=== PATIENT | male | born 1980 | race African-American/Black ===

== ENCOUNTER 2021-02-11 18:16 | Inpatient (IN) | payer MEDICAID ==
[~2021-02-11] VITALS: Ht 177.8 cm; Wt 68.0 kg
[2021-02-11 18:17] VITALS: BP 112/52
[2021-02-11 18:36] LABS: ABSOLUTE NEUTROPHILS 3.5 thou/uL (1.4-8.2); BASOPHILS 0.3 % (0.0-2.0); EOSINOPHILS 0.5 % (0.0-3.0); HEMATOCRIT 35.1 % (42.0-52.0); HEMOGLOBIN 11.8 gm/dL (14.0-18.0); MCH 28.2 pg (26.0-34.0); MCHC 33.6 g/dL (28.0-37.0); MCV 84.1 fL (80.0-100.0); MONOCYTES 8.3 % (1.0-8.0); PLATELET COUNT 194 thou/uL (150-400); POLYS 74.9 % (36.0-66.0); RBC 4.18 mil/uL (4.50-6.00); RDW 14.5 % (10.5-14.5); WBC 4.7 thou/uL (4.0-11.0)
[2021-02-11 18:42] LABS: CALCIUM 8.5 mg/dL (8.5-10.1); CREATININE 1.3 mg/dL (0.7-1.3); POTASSIUM 3.4 mmol/L (3.5-5.1)
[2021-02-11 18:52] LABS: ALBUMIN 3.1 g/dL (3.4-5.0); TOTAL BILIRUBIN 0.2 mg/dL (0.2-1.0); TOTAL PROTEIN 6.4 g/dL (6.4-8.2); TROPONIN-I 0.12 ng/mL (<0.06)
[2021-02-11] MEDS ORDERED: TRESIBA100 UNIT/1 SUBQ (20:40)
[2021-02-11] MEDS ORDERED: HUMALOG100 UNIT/1 SUBQ (20:41)
[2021-02-11] MEDS ORDERED: LIPITOR10 MG PO (20:41)
[2021-02-11 22:20] LABS: CALCIUM 8.4 mg/dL (8.5-10.1); CREATININE 1.3 mg/dL (0.7-1.3); POTASSIUM 3.3 mmol/L (3.5-5.1)
[2021-02-11] MEDS ORDERED: ZONEGRAN100 MG PO (22:55)
[2021-02-12] VITALS (12 sets, daily range): BP systolic 94–135; BP diastolic 56–83
--- NOTE | 2021-02-12 07:22 | EKG ---
[address] [address] ELECTROCARDIOGRAM REPORT Name: GERONIMODORONSLAOME Room #: 170-4 ADM IN M.R.#: [id number] Admission: 02/11/21 Attend Phys: Arthur Mendoza MD Discharge: Date of : 84 Report #: [id number] [facility] ED Test Date: 2021-02-11 Test Time: 19:35:49 Pat Name: LEXX MELTON Department: Room: 170 Gender: M Property Valuer: loretta : 1980 Requested By: Marilu Mars Order Number: [id number] MD: Ryan Austin Measurements Intervals [place] Rate: 87 P: 79 PA: 145 QRS: 87 QRSD: 92 T: 48 QT: 347 QTc: 418 Interpretive Statements Sinus rhythm J Point elev V1-3, probable normal early repol pattern No previous ECG available for comparison Electronically Signed On 02-12-2021 7:22:12 CDT by Ryan Austin [email or web address] <ELECTRONICALLY SIGNED> By: Ryan Austin MD, [facility] 02/12/21 0722 [id number] Ryan Austin MD, FACC /EPI
[2021-02-12 10:57] LABS: CHOLESTEROL 129 mg/dL (<200); HDL CHOLESTEROL 48 mg/dL (>40); LDL CHOLESTEROL 72 mg/dL (<100); TC:HDL 2.7 Ratio (Not establshd); TRIGLYCERIDE 48 mg/dL (<150); VLDL 10 mg/dL (<40)
--- NOTE | 2021-02-12 13:03 | NUR ---
PT RESTING COMFORTABLY. AFEBRILE, ADEQUATE UOP(INCONTINENT), NO BM, APPROPRIATE APPETITE. PT TRANSFERED TO ED ROOM 8, REPORT GIVEN TO RN. PT AND AUNT HAVE BEEN THOUROUGHLY UPDATED AND EDUCATED ON PT CONDITION AND POC. PT PROGRESSING TOWARDS POC.
--- NOTE | 2021-02-12 14:17 | 2DMMODE ---
[facility] [place] [address] 2 D/M-MODE ECHOCARDIOGRAM Name: LEXX MELTON Room #: 170-4 ADM IN M.R.#: [id number] Admission: 02/11/21 Attend Phys: Arthur Mendoza MD Discharge: Date of : 84 Report #: [id number] THIS REPORT FOR: cc: JOSE - Sho family physician/PCP JOSE - Sho family physician/PCP Ryan Austin MD [facility] ~ APPROVED REPORT Study performed: 02/12/2021 13:32:58 EXAM: Comprehensive 2D, Doppler, and color-flow Echocardiogram Patient Location: ER Status: routine BSA: 1.85 HR: 65 bpm BP: 119/69 mmHg Rhythm: NSR Other Information Study Quality: Adequate/thin body habitus. Indications Syncope, elevated troponin. 2D Dimensions RVDd: 30.00 mm IVSd: 8.31 (7-11mm) LVOT Diam: 20.52 (18-24mm) LVDd: 43.79 mm PWd: 7.75 (7-11mm) LVDs: 30.74 (25-40mm) Left Atrium: 25.66 (27-40mm) Aortic Root: 30.96 mm Volumes Left Atrial Volume (Systole) Single Plane 4CH: 26.61 mL Single Plane 2CH: 45.82 mL LA ESV Index: 21.00 mL/m2 Aortic Valve AoV Peak Rl.: 1.08 m/s AO Peak Gr.: 4.64 mmHg LVOT Max P.54 mmHg LVOT Max V: 0.94 m/s ERROL Vmax: 2.89 cm2 [facility] [address] [place] [address] 2 D/M-MODE ECHOCARDIOGRAM Name: GERONIMODORONSALOME Room #: 170-4 [facility] IN [facility]#: [id number] Admission: 02/11/21 Attend Phys: Arthur Mendoza MD Discharge: Date of : 84 Report #: [id number] Mitral Valve E/A Ratio: 2.0 MV Decel. Time: 191.32 ms MV E Max Rl.: 0.81 m/s MV A Rl.: 0.40 m/s MV PHT: 55.48 ms IVRT: 69.20 ms Pulmonary Valve PV Peak Rl.: 0.86 m/s PV Peak Gr.: 2.97 mmHg Pulmonary Vein P Vein S: 0.54 m/s P Vein D: 0.32 m/s P Vein S/D Ratio: 1.69 Tricuspid Valve RAP Estimate: 5.00 mmHg Left Ventricle The left ventricle is normal size. There is normal LV segmental wall motion. There is normal left ventricular wall thickness. Left ventricular systolic function is normal. LVEF is 60%. The left ventricular diastolic function is normal. Right Ventricle The right ventricle is normal size. The right ventricular systolic function is normal. Atria The left atrium size is normal. The right atrium size is normal. Aortic Valve The aortic valve is normal in structure. No aortic regurgitation is present. There is no aortic valvular stenosis. Mitral Valve The mitral valve is normal in structure. There is no mitral valve regurgitation noted. No evidence of mitral valve stenosis. Tricuspid Valve The tricuspid valve is normal in structure. There is no tricuspid valve regurgitation noted. Unable to assess PA pressure. [facility] [place] [address] 2 D/M-MODE ECHOCARDIOGRAM Name: LEXX MELTON Room #: 170-4 ADM IN M.R.#: [id number] Admission: 02/11/21 Attend Phys: Arthur Mendoza MD Discharge: Date of : 84 Report #: [id number] Pulmonic Valve The pulmonary valve is normal in structure. There is no pulmonic valvular regurgitation. Great Vessels The aortic root is normal in size. Ascending aorta is not well visualized. IVC is normal in size and collapses >50% with inspiration. Pericardium There is no pericardial effusion. <Conclusion> Normal left ventricular size/wall thickness Ejection fraction 60% No segmental wall motion abnormality Normal right ventricular size/function Normal atrial size Color-flow Doppler study was performed of the aortic/mitral/tricuspid/pulmonary valve Normal aortic/mitral valve structure and function No tricuspid valve insufficiency Normal aortic root size No pericardial effusion <ELECTRONICALLY SIGNED> By: Ryan Austin MD, FACC 02/12/21 1417 [id number] Ryan Austin MD, [facility] /INF
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
[2021-02-12 22:06] LABS: GLYCOHEMOGLOBIN (HGB A1C) 5.9 % (4.8-5.6)
[2021-02-13] VITALS (7 sets, daily range): BP systolic 97–118; BP diastolic 59–77
[2021-02-13 03:34] LABS: HEMATOCRIT 40.1 % (42.0-52.0); HEMOGLOBIN 13.3 gm/dL (14.0-18.0); MCH 27.8 pg (26.0-34.0); MCV 84.1 fL (80.0-100.0); RBC 4.77 mil/uL (4.50-6.00); RDW 14.1 % (10.5-14.5); WBC 5.9 thou/uL (4.0-11.0)
[2021-02-13 03:45] LABS: CALCIUM 8.4 mg/dL (8.5-10.1); POTASSIUM 3.6 mmol/L (3.5-5.1)
--- NOTE | 2021-02-13 06:35 | NUR ---
ASSUMED PT CARE AT 1900, ALERT AND ORIENTED TO SELF, SITUATIONS ND PLACE, DENIES PAIN OR DISCOMFORT, ASSESSMENTS CHARTED, BP SOFT THIS AM, ASYMPTOMATIC, MEDS GIVEN PER NOV, DENIES CP, NO NEEDS AT THIS TIME, WILL CONTINUE TO MONITOR ANF FOLLOW POC
[2021-02-13] MEDS ORDERED: KAPSPARGO SPRIN25 MG PO (15:14)
[2021-02-13] MEDS ORDERED: LO-DOSE ASPIRIN81 M1 PO (15:15)
--- NOTE | 2021-02-13 15:45 | NUR ---
PATIENT IS BEING DC TO HOME BY PRIVATE VEHICLE WITH DPOA, BROTHER, [employer] PATIENT'S VSS, NO C/O CHEST PAIN, SHORTNESS OF BREATH OR DIZZINESS. PATIENT IS ABLE TO AMBULATE WITHOUT ASSISTANCE AND HAS ROM IN ALL EXTREMTIES. PATIENT VOIDING WITHOUT COMPLICATION. DC PAPERWORK TO BE DISCUSSED WITH PATIENT'S DPOA.
--- NOTE | 2021-02-13 16:05 | NUR ---
Patient to discharge today. Patient appears to have TBI. He is alert and orientated but speaks slowly. medication prescribed has Dr Samayoa as phys. He is neurologist at . Patient reports he does not know who his PCP phys is at this time. He reports he goes to . He reports he used to live with mother. She recently . Patient reports now lives with 31 year old brother, his children and . Brother is on his way to transport patient home. Rn to inquire who is patients PCP.
== END 2021-02-13 19:23 | disposition home or self-care (01) | DRG 280 ==
LOC: ER 18:16 → EROBS 21:07 → 2N 21:07
PROVIDERS: Internal Medicine Cardiovascular Disease; Nurse Practitioner Family; Physician Assistant; ADMIT Hospitalist; ATTEND Hospitalist
DX: I21.4 Non-ST elevation (NSTEMI) myocardial infarction (principal); R65.11 Systemic inflammatory response syndrome (SIRS) of non-infectious origin with acute organ dysfunction; R55 Syncope and collapse; G40.909 Epilepsy, unspecified, not intractable, without status epilepticus; E86.0 Dehydration; Z79.899 Other long term (current) drug therapy; Z87.820 Personal history of traumatic brain injury
CPT/HCPCS: 10081